=== PATIENT | female | born 1995 | race Caucasian/White ===

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

== ENCOUNTER 2019-03-11 15:16 | Inpatient (IN) ==
[2019-03-11] MEDS ORDERED: ACETAMINOPHEN 1,000 MG/100 ML VIAL IV STA (16:12)
[2019-03-11] MEDS ORDERED: ONDANSETRON INJ 2 MG/ML 2 ML VIAL IV STA (16:12)
[2019-03-11] MEDS ORDERED: KETOROLAC TROMETHAMINE 15 MG/ML VIAL IV STA (16:12)
[2019-03-11] MEDS ORDERED: SODIUM CHLORIDE 0.9% 1000ML 1,000 ML IV ONE (16:12)
[2019-03-11 16:39] LABS: Basophils # (auto) 0.02 K/uL (0-0.2); Basophils % (auto) 0.2 %; Eosinophils # (auto) 0.01 K/uL (0-0.5); Eosinophils % (auto) 0.1 %; Hemoglobin 15.5 g/dL (12.0-16.0); Immature Granulocytes # (auto) 0.02 K/uL (0.00-0.02); Immature Granulocytes % (auto) 0.2 %; Lymphocytes # (auto) 1.83 K/uL (1.2-3.4); Lymphocytes % (auto) 18.9 %; Mean Corpuscular Hemoglobin 30.9 pg (25-34); Mean Corpuscular Volume 85.8 fL (80-100); Mean Platelet Volume 10.1 fL (7.4-10.4); Monocytes # (auto) 0.61 K/uL (0.11-0.59); Monocytes % (auto) 6.3 %; Neutrophils # (auto) 7.21 K/uL (1.4-6.5); Neutrophils % (auto) 74.3 %; Platelet Count 319 K/uL (130-400); RDW Coefficient of Variation 12.6 % (11.5-14.5); RDW Standard Deviation 39.6 fL (36.4-46.3); Red Blood Count 5.01 M/uL (4.2-5.4)
[2019-03-11 16:56] LABS: BUN Creatinine Ratio 9.2 (10-20); Calcium 9.5 mg/dl (8.5-10.1); Creatinine Clr Calc Pharmacy 116.2 ml/min; Est GFR (African American) 108.9; Est GFR (Non-African American) 93.9; Potassium 3.7 mmol/L (3.5-5.1)
[2019-03-11 16:59] LABS: Albumin Globulin Ratio 0.8 (0.9-2); Bilirubin,Total 0.4 mg/dl (0.2-1); Globulin 5.1 gm/dl (2.5-4.0); Total Protein 9.1 gm/dl (6.4-8.2)
--- NOTE | 2019-03-11 18:07 | Ultrasound Report ---
US gallbladder HISTORY: Pain. Nausea. ruq pain COMPARISON: None. FINDINGS: Thickened gallbladder wall at 3 mm. No shadowing gallstones. Common bile duct 4 mm. 3 cm hemangioma left hepatic lobe. Right kidney is negative for hydronephrosis . IMPRESSION: 1. Mild prominence of the gallbladder wall in terms thickness. 2. No shadowing gallstones. 3. Normal caliber bile ducts. The above report was generated using voice recognition software. It may contain grammatical, syntax or spelling errors. Electronically signed by: Luiz Escamilla M.D. 03/11/2019 6:05 PM
[2019-03-11] MEDS ORDERED: AMPICILLIN/SULBACTAM SOD 3,000 MG in 0.9 % SODIUM CHLORIDE 100 ML IV STA (18:30)
--- NOTE | 2019-03-11 18:31 | Emergency Department Note ---
Entered by Mary Meyer acting as a scribe for History of Present Illness General Chief complaint: GI Bleed Stated complaint: GI BLEED Time Seen by Provider: 03/11/19 16:01 Source: patient History of Present Illness Onset (ago): hour(s) (this morning) Location: abdomen Pain Consistency: + intermittent Maximum Pain Intensity: 7 Quality: + other (jose-colored stool with black specs and blood) Associated symptoms: + fever/chills (negative fever, positive chills), + nausea/vomiting and + other (pain in gallbladder) The patient is a 23 year old female who presents to the Emergency Room with comp laints of intermittent jose-colored stool with black specs and blood beginning this morning. The patient states her stools have been becoming softer as the day went on. The patient reports episodes of constant stabbing pain in her gallbladder. She notes the pain is a 9/10. She states the episodes last anywhere from a few minutes to an hour. The patient reports dull achy pain in her gallbladder for the past five weeks. She reports nausea and chills, but denies fever. The patient denies any previous surgeries. Patient was seen in the ER on February 25, 2019 for abdominal pain. She had a normal white blood cell count and a normal gallbladder US. Patient was seen by general surgery on March 08, 2019. Surgery decided to remove her gallbladder, and the patient has surgery scheduled for March [address] Mcgraw. Home Medications Home Medications Medication Instructions Recorded Confirmed Type L norgest/e.estradiol-e.estrad 1 tab PO HS 12/01/18 03/11/19 History [Seasonique] lorazepam 0.5 mg PO DAILY PRN 12/01/18 03/11/19 History venlafaxine [Effexor XR] 75 mg PO HS 12/01/18 03/11/19 History naproxen 500 mg PO BID PRN 02/11/19 03/11/19 History buspirone 20 mg PO HS 02/25/19 03/11/19 History famotidine 20 mg PO BID 02/25/19 03/11/19 History omeprazole 20 mg PO QAM 02/25/19 03/11/19 History tramadol 50 mg PO BID PRN 03/08/19 03/11/19 History dicyclomine 10 mg PO TID PRN 03/11/19 03/11/19 History Allergies Allergy/AdvReac Type Severity Reaction Status Date / Time No Known Drug Allergies AdvReac . Verified 03/11/19 17:45 jalapeno AdvReac Severe nausea,vomi Uncoded 03/11/19 17:45 ting,diarrh ea Past Med/Surg History Medical History Mesenteric adenitis (Acute) hx Chronic cholecystitis Anxiety Depression GERD (gastroesophageal reflux disease) Surgical History H/O wisdom tooth extraction History of esophagogastroduodenoscopy (EGD) Family History Mother Diabetes Hypertension Uncle Diabetes Grandfather FHx: prostate cancer Grandfather (Maternal) FHx: lung cancer Social History Preferred Language: Honduran Communication Ability: Effective Director Of Early Childhood Required: No Beliefs That Will Affect Care: None marital status: Single Current Living Situation: Other Current Living Situation Comment: lives with fiance current occupational status: employed current occupation: Dental Hygienist Other Information That Helps Us Care for You: No Feels Safe at Home: Yes Safety Concerns: Feels Safe At This Time Smoking Status: Never smoker Do You Dip or Chew Tobacco: No ; Second Hand Exp osure: Yes (as a child) ; Hx Alcohol Use: Yes Alcohol type: wine Hx Substance Use: No Review of Systems See HPI for pertinent positives & negatives. and A total of 10 systems reviewed and were otherwise negative Physical Exam Vital Signs Vital Signs - 24 hr 03/11/19 15:32 03/11/19 17:17 Temperature 36.9 C Temperature Source Oral Sepsis Recent Fever Within 48 Hours No Sepsis Action Taken by Nursing No Action Required Pulse Rate 105 H Pulse Rate [Finger] 90 Pulse Rhythm [Finger] Regular Respiratory Rate 18 18 Respiratory Effort / Characteristics Non-Labored Spontaneous Respiratory Depth Normal Blood Pressure 140/74 Blood Pressure [Right Arm] 140/74 Blood Pressure Mean 96 Blood Pressure Mean [Right Arm] 96 Blood Pressure Position Sitting Pulse Oximetry 100 100 Oxygen Delivery Method Room Air GENERAL: Patient is in no acute distress. Patient is anxious. HEENT: No acute trauma, normocephalic atraumatic, mucous membranes moist, no nasal congestion, no scleral icterus. NECK: No stridor, no adenopathy, no meningismus, trachea is midline. LUNGS: Clear to auscultation bilaterally, no wheeze, no rhonchi, breath sounds equal. HEART: Mildly tachycardic with regular rhythm, no murmurs. ABDOMEN: Moderately tender to right upper quadrant an epigastric region. Soft, bowel sounds positive, no hernias, no peritonitis. EXTREMITIES: No cyanosis or edema, full range of motion of all the joints without pain or difficulty, no signs for acute trauma. NEUROLOGIC: Oriented x 3, no acute motor or sensory deficits, no focal weakness. SKIN: No rash, no jaundice, no diaphoresis. RECTAL: No hemorrhoids or source for bleeding. Brown stool, heme-negative. Course 1605: Past medical records reviewed. The patient was evaluated in room A12A. A complete history and physical exam was performed. 1618: I spoke with Dr. Munoz about the patient's condition. However, he will not see the patient without lab work first. 1815: I spoke with Dr. Munoz who said to call medicine for admission. He said to tell medicine to schedule a HIDA scan. 1820: Upon reevaluation, I discussed findings and results with the patient and her family. 1830: Upon reevaluation, I discussed findings and results with the patient and her family. They verbalized agreement of the treatment plan. I spoke with Pedrito Jimenes PA-C who agrees to further evaluation of the patient [facility] The patient will be evaluated for further management and care. Administered Medications Buspirone HCl (Buspar) 20 mg PO HS KIARA Stop: 04/10/19 21:59 Last Admin: 03/11/19 22:08 Dose: 20 mg Documented by: [id number] Sodium Chloride (Nss 1000ml) 1,000 mls @ 80 mls/hr IV .[id number] KIARA Stop: 03/12/19 16:00 Last Admin: 03/11/19 21:29 Dose: 80 mls/hr Documented by: [id number] Lorazepam (Ativan) 0.5 mg PO DAILY PRN PRN Reason: Anxiety Stop: 04/10/19 21:29 Last Admin: 03/11/19 22:07 Dose: 0.5 mg Documented by: [id number] Venlafaxine HCl (Effexor Extended Release) 75 mg PO HS KIARA Stop: 04/10/19 20:59 Last Admin: 03/11/19 21:27 Dose: 75 mg Documented by: [id number] Discontinued Medications Acetaminophen (Ofirmev) 1,000 mg in 100 mls @ 400 mls/hr IV NOW STA Stop: 03/11/19 16:26 Last Infusion: 03/11/19 17:47 Dose: 0 mls/hr Documented by: [id number] Admin: 03/11/19 16:55 Dose: 400 mls/hr Documented by: [id number] Sodium Chloride (Nss 1000ml) 1,000 mls @ 999 mls/hr IV .[id number] ONE Stop: 03/11/19 17:12 Last Infusion: 03/11/19 18:29 Dose: 0 mls/hr Documented by: [id number] Admin: 03/11/19 16:55 Dose: 999 mls/hr Documented by: [id number] Ampicillin Sodium/Sulbactam Sodium 3,000 mg/ Sodium Chloride 108 mls @ 200 mls/hr IV NOW STA; Protocol Stop: 03/11/19 19:02 Last Infusion: 03/11/19 19:58 Dose: 0 mls/hr Documented by: [id number] Admin: 03/11/19 19:15 Dose: 200 mls/hr Documented by: [id number] Ketorolac Tromethamine (Toradol) 15 mg IV NOW STA Stop: 03/11/19 16:13 Last Admin: 03/11/19 16:55 Dose: 15 mg Documented by: [id number] Ondansetron HCl (Zofran) 4 mg IV NOW STA Stop: 03/11/19 16:13 Last Admin: 03/11/19 16:55 Dose: 4 mg Documented by: [id number] Medical Decision Making Differential Diagnosis Differential diagnosis: acute cholecystitis, biliary colic, hemorrhoid, pancreatitis, dehydration, upper or lower GI bleed , gastritis, food borne or viral illness Medical Records Attestation: I reviewed the patient's medical records. Home Medications Current Medication List: was personally reviewed by me Laboratory Data Attestation: I reviewed the patient's lab results. Result diagrams: 03/11/19 16:29 03/11/19 16:29 Lab Results 03/11/19 03/11/19 03/11/19 Range/Units 15:50 16:29 16:29 WBC 9.70 (4.8-10.8) K/uL RBC 5.01 (4.2-5.4) M/uL Hgb 15.5 (12.0-16.0) g/dL Hct 43.0 (37-47) % MCV 85.8 (80-100) fL MCH 30.9 (25-34) pg MCHC 36.0 (32-36) g/dL RDW Std Deviation 39.6 (36.4-46.3) fL RDW Coeff of Mario 12.6 (11.5-14.5) % Plt Count 319 (130-400) K/uL MPV 10.1 (7.4-10.4) fL Immature Gran % (Auto) 0.2 % Neut % (Auto) 74.3 % Lymph % (Auto) 18.9 % Beaver % (Auto) 6.3 % Eos % (Auto) 0.1 % Baso % (Auto) 0.2 % Immature Gran # (Auto) 0.02 (0.00-0.02) K/uL Neut # (Auto) 7.21 H (1.4-6.5) K/uL Lymph # (Auto) 1.83 (1.2-3.4) K/uL Beaver # (Auto) 0.61 H (0.11-0.59) K/uL Eos # (Auto) 0.01 (0-0.5) K/uL Baso # (Auto) 0.02 (0-0.2) K/uL Sodium 135 L (136-145) mmol/L Potassium 3.7 (3.5-5.1) mmol/L Chloride 103 (98-107) mmol/L Carbon Dioxide 23 (21-32) mmol/L Anion Gap 9.0 (3-11) BUN 8 (7-18) mg/dl Creatinine 0.88 (0.6-1.2) mg/dl Est Cr Clr Drug Dosing 116.2 ml/min Est GFR ( Amer) 108.9 Est GFR (Non-Af Amer) 93.9 BUN/Creatinine Ratio 9.2 L (10-20) Glucose 87 (70-99) mg/dl Calcium 9.5 (8.5-10.1) mg/dl Total Bilirubin 0.4 (0.2-1) mg/dl AST 24 (15-37) U/L ALT 42 (12-78) U/L Alkaline Phosphatase 141 H (45-117) U/L Total Protein 9.1 H (6.4-8.2) gm/dl Albumin 4.0 (3.4-5.0) gm/dl Globulin 5.1 H (2.5-4.0) gm/dl Albumin/Globulin Ratio 0.8 L (0.9-2) Lipase 66 L (73-393) U/L Urine Test Negative (Negative) Imaging Data Radiologist's Impression: Radiology results as stated below per my review and the radiologist's interpretation: US gallbladder HISTORY: Pain. Nausea. ruq pain COMPARISON: None. FINDINGS: Thickened gallbladder wall at 3 mm. No shadowing gallstones. Common bile duct 4 mm. 3 cm hemangioma left hepatic lobe. Right kidney is neg ative for hydronephrosis. IMPRESSION: 1. Mild prominence of the gallbladder wall in terms thickness. 2. No shadowing gallstones. 3. Normal caliber bile ducts. The above report was generated using voice recognition software. It may contain grammatical, syntax or spelling errors. Electronically signed by: Luiz Escamilla M.D. 03/11/2019 6:05 PM Blood Pressure Blood Pressure Findings: Elevated blood pressure Blood Pressure Disposition: elevated BP felt to be situational MDM Narrative There is no leukocytosis or concerning anemia. No significant electrolyte abnormality or kidney failure. Alk phos is slightly elevated at 141. No bilirubin elevation. No evidence for pancreatitis by our testing. Gallbladder ultrasound shows some slightly thickened gallbladder wall, no gallstones. On exam, the patient was tender in the right upper quadrant. I did review the patient's old records. She did have a HIDA scan done showing the potential of a chronic cholecystitis. This scan was done just over a week ago. The patient received IV saline, IV Zofran and IV Toradol. She was given IV Tylenol and a dose of IV Unasyn as antibiotic coverage. The patient presents with ongoing right upper quadrant abdominal pain. I discussed her case with general surgery. They recommended a hospitalist admission with potential surgery tomorrow once resuscitation was complete. There is no reason for emergent surgical intervention this evening. The patient is aware of the findings, she is currently resting comfortably. Impression & Plan Right upper quadrant abdominal pain, Nausea, Cholecystitis, chronic Discharge Plan Visit Data *Final* Discharge Date/Time: 03/11/19 19:59 Chief Complaint: GI Bleed Stated Complaint: GI BLEED ED Provider: Pedrito Craig Discharge Problem: Right upper quadrant abdominal pain, Nausea, Cholecystitis, chronic Patient Disposition: Admitted As Inpatient Discharge Instructions Interventions: ED Discharge Assessment Last Done: 03/11/19 19:59 The dinaibe's documentation has been prepared under my direction and personally reviewed by me in its entirety. I confirm that the note above accurately reflects all work, treatment, procedures, and medical decision making performed by me.
[2019-03-11 20:36] LABS: Pregnancy Test, Urine Negative (Negative)
--- NOTE | 2019-03-11 20:56 | History & Physical Report ---
Date of Service March 11, 2019 Assessment & Plan (1) Right upper quadrant abdominal pain: Patient with recent HIDA scan which reflects probable chronic cholecystitis Ultrasound in the ER shows no biliary obstruction and no stones in the gallbladder but there is 3 mm thickening of the gallbladder wall Surgery was consulted and will see the patient in the morning Repeat labs in the morning IV fluids overnight N.p.o. after midnight Defer further evaluation treatment to Dr. Munoz (2) Hematochezia: Patient reports one episode of diarrhea this morning with blood in it No other bright red blood per rectum Will guaiac all stools We will also send stool for culture No intervention at this time Continue famotidine and PPI as well as Bentyl No indication for gastroenterology consult at this time We will follow throughout the course of this hospital stay (3) Anxiety and depression: Continue home medication including buspirone, lorazepam, and Effexor XR (4) GERD (gastroesophageal reflux disease): Follows with [facility] gastroenterology Continue Bentyl, famotidine, pantoprazole for now No gastroenterology consult at this point We will follow for hematochezia as listed above (5) DVT prophylaxis: No chemical prophylaxis secondary to possible surgery ROYAL royal SCDs Ambulate in hallways every shift Out of bed to chair Please refer to Dr. Mariee's addendum for further recommendations History of Present Illness Attending: Dr. Mariee There is a 23-year-old female with a history of anxiety, depression, dysmenorrhea, hematochezia, chronic cholecystitis. The patient has been evaluated by outpatient surgery as well as GI for ongoing abdominal pain for the last several weeks. She was most recently seen by Dr. Mcgraw who scheduled her for a HIDA scan which showed chronic cholecystitis. The patient was scheduled for an elective cholecystectomy 03/16/2019. The patient has had persistent nausea and abdominal pain and this morning reports having some diarrhea with some blood in it. Patient denies any dark blood but states that it was bright red. The patient has no prior history of GI bleed. As an outpatient she is on Bentyl, famotidine, and omeprazole. She denies any rectal pain with bowel movement. She denies any bright red blood per rectum or melena. She further denies any hematemesis. Labs reveal slightly elevated alkaline phosphatase at 141 and total protein 9.1. Otherwise LFTs are within normal limits. Patient has no leukocytosis and is afebrile She has no significant abdominal pain on exam and has no rebound tenderness or guarding. Aside from abdominal pain and some intermittent nausea the patient has no other acute complaints. Primary Care Provider: Ananth Peralta MD Allergies Allergy/AdvReac Type Severity Reaction Status Date / Time No Known Drug Allergies AdvReac . Verified 03/11/19 17:45 jalapeno AdvReac Severe nausea,vomi Uncoded 03/11/19 17:45 ting,diarrh ea Home Medications Home Medications Medication Instructions Recorded Confirmed Type L norgest/e.estradiol-e.estrad 1 tab PO HS 12/01/18 03/11/19 History [Seasonique] lorazepam 0.5 mg PO DAILY PRN 12/01/18 03/11/19 History venlafaxine [Effexor XR] 75 mg PO HS 12/01/18 03/11/19 History naproxen 500 mg PO BID PRN 02/11/19 03/11/19 History buspirone 20 mg PO HS 02/25/19 03/11/19 History famotidine 20 mg PO BID 02/25/19 03/11/19 History omeprazole 20 mg PO QAM 02/25/19 03/11/19 History tramadol 50 mg PO BID PRN 03/08/19 03/11/19 History dicyclomine 10 mg PO TID PRN 03/11/19 03/11/19 History Past Med/Surg History Medical History Mesenteric adenitis (Acute) hx Chronic cholecystitis Anxiety Depression GERD (gastroesophageal reflux disease) Surgical History H/O wisdom tooth extraction History of esophagogastroduodenoscopy (EGD) Family History Mother Diabetes Hypertension Uncle Diabetes Grandfather FHx: prostate cancer Grandfather (Maternal) FHx: lung cancer Social History Preferred Language: Faroese Communication Ability: Effective Engineering Aide Required: No Beliefs That Will Affect Care: None marital status: Single Current Living Situation: Other Current Living Situation Comment: lives with fiance current occupational status: employed current occupation: Dental Hygienist Other Information That Helps Us Care for You: No Feels Safe at Home: Yes Safety Concerns: Feels Safe At This Time Smoking Status: Never smoker Do You Dip or Chew Tobacco: No ; Second Hand Exposure: Yes (as a child) ; Hx Alcohol Use: Yes Alcohol type: wine Hx Substance Use: No Review of Systems Review of Systems: All systems reviewed & are unremarkable except as noted in HPI & below Physical Exam Physical Exam: GENERAL : No acute distress EYES: No icterus, gaze conjugate NOSE: No evidence of epistaxis MOUTH: No lesions or candidiasis NECK: Supple LUNGS: CTA B/L, no wheezes, rales or rhonchi HEART: Regular, rate controlled ABDOMEN: Minimal tenderness to exam in right upper quadrant with deep palpation. Soft, ND, BS Present in all 4 quadrants. No guarding or rebound tenderness on exam EXTREMITIES: No LE edema, pedal pulses intact and equal bilaterally. No asymmetrical edema. No Homans sign. NEURO: A&OX3. No appreciation of any focal deficits. Results & Data Vital Signs (Past 12 Hours) Vital Signs Temp Pulse Pulse Resp BP BP Pulse Ox 03/11/19 19:42 99 H 16 111/74 97 03/11/19 17:17 90 18 140/74 100 03/11/19 15:32 36.9 C 105 H 18 140/74 100 Laboratory Results 03/11/19 16:29 03/11/19 16:29 Alkaline phosphatase 141 Total protein 9.1 Total bilirubin 0.4 Lipase 66 Diagnostic Findings US gallbladder HISTORY: Pain. Nausea. ruq pain COMPARISON: None. FINDINGS: Thickened gallbladder wall at 3 mm. No shadowing gallstones. Common bile duct 4 mm. 3 cm hemangioma left hepatic lobe. Right kidney is negative for hydronephrosis. IMPRESSION: 1. Mild prominence of the gallbladder wall in terms thickness. 2. No shadowing gallstones. 3. Normal caliber bile ducts. Electronically signed by: Luiz Escamilla M.D. 03/11/2019 6:05 PM HIDA Scan 03/02/2019 Impression: #1 delayed gallbladder filling (90 minutes), and raises suspicion for chronic cholecystitis #2 no evidence for common bile duct obstruction Code Status & VTE Plan Code Status Full resuscitation VTE Prophylaxis Plan VTE Prophylaxis will be ordered: Yes Reason for no VTE drug order: Contraindicated (Possible surgery in the morning) Supervising Physician Co-Signing Physician Notes HISTORY: Record reviewed. Patient interviewed and examined. Care coordinated with Pedrito Mohamud PA-C. Please refer to his documentation for detailed history. Briefly, 23 YO female with history of cholecystitis, scheduled for elective cholecystectomy next week. Presented to ED with worsening postprandial right upper quadrant pain after eating fatty food. Also experiencing some loose stools with a small amount of blood. No fever. EXAM: General- no distress Eyes- anicteric Lungs- clear to auscultation; no respiratory distress Cardiovascular- RRR; no murmur; no gallop; no JVD; no pretibial edema Abdomen- + bowel sounds, soft, mild RUQ tenderness Extremities- no cyanosis; no calf tenderness Neuro- alert, oriented Skin- warm & dry DATA: Hemoglobin 15.5, white count 9700, platelet count 319,000. Electrolytes essentially normal, BUN 8, creatinine 0.88, glucose 87. Total bilirubin 0.4, AST 24, ALT 42, alkaline phosphatase 141. Lipase 66. Other lab studies as noted. Gallbladder ultrasound demonstrated mild thickness of gallbladder wall, no cholelithiasis appreciated. ASSESSMENT AND PLAN: RUQ abdominal pain. Recent HIDA scan suggesting cholecystitis. Diarrhea with hematochezia. Afebrile. Consult General Surgery re: RUQ pain. Check stool for C diff and routine enteric pathogens. Please refer to ROSHNI Mohamud's documentation for discussion of other issues.
[2019-03-11] MEDS: VENLAFAXINE HCL XR 75 MG CAPXR PO SCH (21:27)
[2019-03-11] MEDS: SODIUM CHLORIDE 0.9% 1000ML 1,000 ML IV SCH (21:29)
[2019-03-11] MEDS ORDERED: LORazepam 0.5 MG TAB PO PRN (21:30)
[2019-03-12] MEDS ORDERED: MoRPHine SULFATE 2 MG/ML CARP IV PRN (01:59)
[2019-03-12] MEDS: ONDANSETRON INJ 2 MG/ML 2 ML VIAL IV PRN ×3 (01:59→18:14)
[2019-03-12 05:45] LABS: Basophils # (auto) 0.01 K/uL (0-0.2); Basophils % (auto) 0.2 %; Eosinophils # (auto) 0.08 K/uL (0-0.5); Eosinophils % (auto) 1.3 %; Hematocrit (blood only) 38.1 % (37-47); Hemoglobin 12.9 g/dL (12.0-16.0); Immature Granulocytes # (auto) 0.01 K/uL (0.00-0.02); Immature Granulocytes % (auto) 0.2 %; Lymphocytes # (auto) 2.04 K/uL (1.2-3.4); Lymphocytes % (auto) 32.6 %; Mean Corpuscular Hgb Conc 33.9 g/dL (32-36); Mean Corpuscular Volume 88.6 fL (80-100); Mean Platelet Volume 10.8 fL (7.4-10.4); Monocytes # (auto) 0.75 K/uL (0.11-0.59); Neutrophils # (auto) 3.36 K/uL (1.4-6.5); Neutrophils % (auto) 53.7 %; Platelet Count 264 K/uL (130-400); RDW Coefficient of Variation 12.8 % (11.5-14.5); White Blood Count 6.25 K/uL (4.8-10.8)
[2019-03-12 06:08] LABS: BUN Creatinine Ratio 8.3 (10-20); Calcium 8.3 mg/dl (8.5-10.1); Creatinine Clr Calc Pharmacy 132.9 ml/min; Est GFR (African American) 127.9; Est GFR (Non-African American) 110.4; Potassium 3.5 mmol/L (3.5-5.1)
[2019-03-12] MEDS ORDERED: LORazepam 0.25 MG/0.5 ML VIAL IV PRN (06:42)
[2019-03-12] MEDS: PANTOprazole 40 MG TAB PO SCH (07:28)
[2019-03-12] MEDS ORDERED: INFLUENZA ADMINISTRATION CHARGE ONE (07:45)
[2019-03-12] MEDS ORDERED: INFLUENZA VIRUS QUAD VACCINE 0.5 ML SYR IM ONE (07:45)
--- NOTE | 2019-03-12 08:00 | XRay Report ---
XR chest 1V portable HISTORY: Pre-op COMPARISON: None. FINDINGS: The lungs are clear. Cardiac silhouette is normal in size. No pleural effusions. No pneumot horax. IMPRESSION: No acute process. Electronically signed by: Romero Hebert M.D. 03/12/2019 7:59 AM
[2019-03-12] MEDS ORDERED: MIDAZOLAM HCL 1 MG/ML 2ML VIAL ONE (08:32)
[2019-03-12] MEDS ORDERED: fentaNYL citrate 100 MCG/2 ML VIAL ONE ×2 (08:32→10:11)
--- NOTE | 2019-03-12 08:34 | Surgery Consultation ---
Date of Consultation March 12, 2019 Assessment & Plan (1) Abdominal pain: pt is a 23 year-old female who was admitted hospital for 5 weeks history RUQ pain with nausea and vomiting, IMP: chronic cholecystitis Plan, I recommend to do laparoscopic cholecystectomy, possible open or cholang iogram, D/W benefits, risks and alternatives of the surgery, the risks - infection, bleeding, injury CBD, pt understood, she agrees with the surgery, I answered all questions, (2) Chronic cholecystitis: History of Present Illness Attending Physician: Amelia Bryant MD CC: abdominal pain There is a 23-year-old female with a history of anxiety, depression, dysmenorrhea, hematochezia, chronic cholecystitis. The patient has been evaluated by outpatient surgery as well as GI for ongoing abdominal pain for the last several weeks. She was most recently seen by Dr. Mcgraw who scheduled her for a HIDA scan which showed chronic cholecystitis. The patient was scheduled for an elective cholecystectomy 03/16/2019. The patient has had persistent nausea and abdominal pain and this morning reports having some diarrhea with some blood in it. Patient denies any dark blood but states that it was bright red. The patient has no prior history of GI bleed. As an outpatient she is on Bentyl, famotidine, and omeprazole. She denies any rectal pain with bowel movement. She denies any bright red blood per rectum or melena. She further denies any hematemesis. Labs reveal slightly elevated alkaline phosphatase at 141 and total protein 9.1. Otherwise LFTs are within normal limits. Patient has no leukocytosis and is afebrile She has no significant abdominal pain on exam and has no rebound tenderness or guarding. Aside from abdominal pain and some intermittent nausea the patient has no other acute complaints. I ( Kerline Munoz MD) reviewed pt's H/P, laps, U/S Study with pt, pt is still have RUQ pain, with nausea, pt wants to do cholecystectomy. Allergies Allergy/AdvReac Type Severity Reaction Status Date / Time No Known Drug Allergies AdvReac . Verified 03/11/19 17:45 jalapeno AdvReac Severe nausea,vomi Uncoded 03/11/19 17:45 ting,diarrh ea Home Medications Home Medications Medication Instructions Recorded Confirmed Type L norgest/e.estradiol-e.estrad 1 tab PO HS 12/01/18 03/11/19 History [Seasonique] lorazepam 0.5 mg PO DAILY PRN 12/01/18 03/11/19 History venlafaxine [Effexor XR] 75 mg PO HS 12/01/18 03/11/19 History naproxen 500 mg PO BID PRN 02/11/19 03/11/19 History buspirone 20 mg PO HS 02/25/19 03/11/19 History famotidine 20 mg PO BID 02/25/19 03/11/19 History omeprazole 20 mg PO QAM 02/25/19 03/11/19 History tramadol 50 mg PO BID PRN 03/08/19 03/11/19 History dicyclomine 10 mg PO TID PRN 03/11/19 03/11/19 History Patient History Medical History Chronic cholecystitis Abdominal pain Mesenteric adenitis (Acute) hx Chronic cholecystitis Anxiety Depression GERD (gastroesophageal reflux disease) Surgical History H/O wisdom tooth extraction History of esophagogastroduodenoscopy (EGD) Family History Mother Diabetes Hypertension Uncle Diabetes Grandfather FHx: prostate cancer Grandfather (Maternal) FHx: lung cancer Social History Preferred Language: Wallisian Communication Ability: Effective Light Fixture Servicer Required: No Beliefs That Will Affect Care: None marital status: Single Current Living Situation: Other Current Living Situation Comment: lives with fiance current occupational status: employed current occupation: Dental Hygienist Other Information That Helps Us Care for You: No Feels Safe at Home: Yes Safety Concerns: Feels Safe At This Time Smoking Status: Never smoker Do You Dip or Chew Tobacco: No ; Second Hand Exposure: Yes (as a child) ; Hx Alcohol Use: Yes Alcohol type: wine Hx Substance Use: No Review of Systems Review of Systems: All systems reviewed & are unremarkable except as noted in HPI & below Physical Exam Constitutional: WD/WN, vitals as above well developed and well nourished ENMT: external ear and nose normal, oropharynx normal Neck: trachea midline, no thyromegaly Respiratory: normal respiratory effort, lungs clear to auscultation normal respiratory effort Cardiovascular: RRR, no murmur, no edema Rate/Rhythm: regular rate and regular rhythm Heart Sounds: normal S1 and normal S2 Gastrointestinal (Abdomen): soft, tenderness at RUQ, no rebound pain, Musculoskeletal: no cyanosis or clubbing, extremities motor strength 5/5 Skin: no rashes, warm and dry Neurologic: patellar DTR's 2+ bilat, sensation intact Psychiatric: Orientation: alert and oriented x 3 Results & Data Vital Signs (Past 12 Hours) Vital Signs Temp Pulse Resp BP BP Pulse Ox 03/12/19 07:22 36.9 C 84 18 106/75 99 03/11/19 23:56 36.7 C 75 16 107/72 98 03/11/19 21:46 36.8 C 84 16 124/84 98 Laboratory Results Abnormal lab results 03/11/19 03/11/19 03/12/19 Range/Units 16:29 16:29 04:44 MPV 10.8 H (7.4-10.4) fL Neut # (Auto) 7.21 H (1.4-6.5) K/uL [place] # (Auto) 0.61 H 0.75 H (0.11-0.59) K/uL Sodium 135 L (136-145) mmol/L Chloride (98-107) mmol/L BUN (7-18) mg/dl BUN/Creatinine Ratio 9.2 L (10-20) Calcium (8.5-10.1) mg/dl Alkaline Phosphatase 141 H (45-117) U/L Total Protein 9.1 H (6.4-8.2) gm/dl Globulin 5.1 H (2.5-4.0) gm/dl Albumin/Globulin Ratio 0.8 L (0.9-2) Lipase 66 L (73-393) U/L 03/12/19 Range/Units 04:44 MPV (7.4-10.4) fL Neut # (Auto) (1.4-6.5) K/uL [place] # (Auto) (0.11-0.59) K/uL Sodium (136-145) mmol/L Chloride 110 H (98-107) mmol/L BUN 6 L (7-18) mg/dl BUN/Creatinine Ratio 8.3 L (10-20) Calcium 8.3 L (8.5-10.1) mg/dl Alkaline Phosphatase (45-117) U/L Total Protein (6.4-8.2) gm/dl Globulin (2.5-4.0) gm/dl Albumin/Globulin Ratio (0.9-2) Lipase (73-393) U/L Diagnostic Findings US gallbladder HISTORY: Pain. Nausea. ruq pain COMPARISON: None. FINDINGS: Thickened gallbladder wall at 3 mm. No shadowing gallstones. Common bile duct 4 mm. 3 cm hemangioma left hepatic lobe. Right kidney is nega tive for hydronephrosis. IMPRESSION: 1. Mild prominence of the gallbladder wall in terms thickness. 2. No shadowing gallstones. 3. Normal caliber bile ducts.
[2019-03-12] MEDS ORDERED: CEFAZOLIN 2000MG 2,000 MG/15 ML SYR IV ONE (08:39)
[2019-03-12] MEDS ORDERED: BUPIVACAINE 0.5 % 5 MG/1 ML MPF 30ML VIAL ONE (09:22)
[2019-03-12] MEDS ORDERED: BACITRACIN OINT 15 GM TUBE ONE (09:22)
[2019-03-12] MEDS ORDERED: LIDOCAINE HCL 1% 20 ML VIAL ONE (09:22)
--- NOTE | 2019-03-12 09:27 | Anesthesiology Consultation ---
Date of Service March 12, 2019 Assessment & Plan ASA ASA2E Proposed Anesthesia Anesthesia Type: General Risk / Benefits Reviewed With: PT / POA / Parent / Guardian, Accepts Plan and Informed Consent Obtained History Surgery Operation Date: 03/12/19 09:00 Proposed Procedures p Laparoscopic Cholecystectomy - Kerline Munoz MD Height/Weight Height: 5 ft 5 in Weight: 96.615 kg Allergies Allergy/AdvReac Type Severity Reaction Status Date / Time No Known Drug Allergies AdvReac . Verified 03/11/19 17:45 jalapeno AdvReac Severe nausea,vomi Uncoded 03/11/19 17:45 ting,diarrh ea Medications Home Medications Medication Instructions Recorded Confirmed Last Taken L norgest/e.estradiol-e.estrad 1 tab PO HS 12/01/18 03/11/19 02/10/19 [Seasonique] lorazepam 0.5 mg PO DAILY PRN 12/01/18 03/11/19 Unknown venlafaxine [Effexor XR] 75 mg PO HS 12/01/18 03/11/19 02/10/19 naproxen 500 mg PO BID PRN 02/11/19 03/11/19 Unknown buspirone 20 mg PO HS 02/25/19 03/11/19 Unknown famotidine 20 mg PO BID 02/25/19 03/11/19 Unknown omeprazole 20 mg PO QAM 02/25/19 03/11/19 Unknown tramadol 50 mg PO BID PRN 03/08/19 03/11/19 Unknown dicyclomine 10 mg PO TID PRN 03/11/19 03/11/19 Unknown Active Medications Generic Name Dose Route Start Last Admin Trade Name Freq PRN Reason Stop Dose Admin Buspirone HCl 20 mg 03/11/19 22:00 03/11/19 22:08 Buspar PO 04/10/19 21:59 20 mg HS KIARA Administration Sodium Chloride 1,000 mls @ 80 mls/hr 03/11/19 21:30 03/11/19 21:29 Nss 1000ml IV 03/12/19 16:00 80 mls/hr .[id number] KIARA Administration Lorazepam 0.25 mg in 0.5 mls @ 0.5 mls/min 03/12/19 06:42 03/12/19 07:00 Ativan IV 04/11/19 06:41 0.5 mls/min Q4H PRN Administration Anxiety Lorazepam 0.5 mg 03/11/19 21:30 03/11/19 22:07 Ativan PO 04/10/19 21:29 0.5 mg DAILY PRN Administration Anxiety Morphine Sulfate 2 mg 03/12/19 01:59 03/12/19 02:08 Morphine Sulfate IV 03/26/19 01:58 EST 2 mg Q4H PRN Administration Pain Ondansetron HCl 4 mg 03/11/19 20:14 03/12/19 08:19 Zofran IV 04/10/19 20:13 4 mg Q6H PRN Administration Nausea Pantoprazole Sodium 40 mg 03/12/19 09:00 03/12/19 07:28 Protonix PO 04/11/19 08:59 Not Given QAM KIARA Venlafaxine HCl 75 mg 03/11/19 21:00 03/11/19 21:27 Effexor Extended Release PO 04/10/19 20:59 75 mg HS KIARA Administration NPO Date Last Intake of Fluids: 03/12/19 Time Last Intake of Fluids: 00:00 Date Last Intake of Solids: 03/11/19 Time Last Intake of Solids: 21:00 Past Medical History Medical History Chronic cholecystitis Abdominal pain Mesenteric adenitis (Acute) hx Chronic cholecystitis Anxiety Depression GERD (gastroesophageal reflux disease) Exercise / Class Metabolic Activity II 4-5 Yardwork/Stairs/Walk up hill Past Family History Family History Mother Diabetes Hypertension Uncle Diabetes Grandfather FHx: prostate cancer Grandfather (Maternal) FHx: lung cancer Past Surgical History Surgical History H/O wisdom tooth extraction History of esophagogastroduodenoscopy (EGD) Past Anesthesia History No Hx of Anesthesia Complications and No Family Hx of Anesthesia Complications History of PONV No Hx of PONV and No Hx of Motion Sickness Social History Smoking Status: Never smoker Do You Dip or Chew Tobacco: No Hx Alcohol Use: Yes Alcohol type: wine alcohol intake frequency: holidays/special occasions only Hx Substance Use: No substance use type: does not use Physical Exam Vital Signs Last Vital Signs Temp 36.9 C 03/12/19 07:22 Pulse 84 03/12/19 07:22 Resp 18 03/12/19 07:22 BP 106/75 03/12/19 07:22 Pulse Ox 99 03/12/19 07:22 Testing Laboratory Results 03/12/19 04:44 03/12/19 04:44 Urine Test Negative (Negative) 03/11/19 15:50 03/11/19 15:50 Urine Test Negative
[2019-03-12] MEDS ORDERED: PROMETHAZINE HCL 6.25 MG in SODIUM CHLORIDE 0.9% 50 ML IV PRN (09:28)
[2019-03-12] MEDS ORDERED: HYDROmorphone INJ 1 MG/ML SYRINGE IV PRN (09:28)
[2019-03-12] MEDS ORDERED: ATROPINE SULFATE 0.1 MG/ML 10ML SYR IV PRN (09:28)
[2019-03-12] MEDS ORDERED: ePHEDrine sulfate 50 MG/ML AMP IV PRN (09:28)
[2019-03-12] MEDS ORDERED: ONDANSETRON INJ 2 MG/ML 2 ML VIAL IV PRN (09:28)
[2019-03-12] MEDS ORDERED: fentaNYL citrate 100 MCG/2 ML VIAL IV PRN (09:28)
[2019-03-12] MEDS ORDERED: SCOPOLAMINE 1.5 MG TDSY ONE (09:38)
[2019-03-12] MEDS ORDERED: LIDOCAINE HCL 2% 2 ML VIAL/AMP(20MG/ML) INFIL ONE (10:15)
[2019-03-12] MEDS ORDERED: NEOSTIGMINE METHYLSULFATE 5 MG/5 ML SYR ONE (10:15)
[2019-03-12] MEDS ORDERED: ONDANSETRON INJ 2 MG/ML 2 ML VIAL ONE (10:15)
[2019-03-12] MEDS ORDERED: GLYCOPYRROLATE 0.2 MG/ML VIAL ONE (10:15)
[2019-03-12] MEDS ORDERED: DEXAMETHASONE SOD INJ 4 MG/ML VIAL ONE (10:15)
[2019-03-12] MEDS ORDERED: ROCURONIUM BROMIDE 10 MG/ML 5 ML VIAL ONE (10:15)
[2019-03-12] MEDS ORDERED: PROPOFOL IV EMULSION 10 MG/ML 20 ML VIAL IV ONE (10:15)
[2019-03-12] MEDS ORDERED: LARYING-O-JET KIT (LTA) ONE (10:17)
[2019-03-12] MEDS ORDERED: CEFAZOLIN 250 MG/ML 1 GM VIAL ONE (10:26)
[2019-03-12] MEDS ORDERED: KETOROLAC 30 MG/ML VIAL ONE (10:59)
--- NOTE | 2019-03-12 11:07 | Post Operative Brief Note ---
Immediate Post Op Note v1 Date of Surgery March 12, 2019 Pre & Post Diagnosis Operation Date: 03/12/19 09:00 Pre-Op Diagnosis: chronic cholecystitis Post-Op Diagnosis: chronic cholecystitis I identified the patient and participated in the time-out.: Yes Procedure Operation Date: 03/12/19 09:00 Actual Procedures p Laparoscopic Cholecystectomy(Not Applicable) - Kerline Munoz MD Surgeon Kerline Munoz MD Patternmaker Helper library technician Estimated Blood Loss 5 Findings Consistent with Post-Op Diagnosis Fluids 500ml Specimens gallbladder Anesthesia Type General Complications none Disposition Accompanied Patient To Recovery: Yes Disposition: Recovery Room Overlapping Procedure I was immediately available: during the entire case.
[2019-03-12] MEDS ORDERED: ESMOLOL HCL INJ 10 MG/ML 10ML VIAL IV ONE (11:25)
[2019-03-12] MEDS ORDERED: LORazepam 0.5 MG TAB PO PRN (12:13)
[2019-03-12] MEDS ORDERED: TRAMADOL HCL 50 MG TABLET PO PRN (12:13)
[2019-03-12] MEDS ORDERED: NAPROXEN 250 MG TAB PO PRN (12:13)
[2019-03-12] MEDS ORDERED: DICYCLOMINE HCL 10 MG CAP PO PRN (12:13)
[2019-03-12] MEDS: HYDROmorphone INJ 0.5 MG/0.5 ML SYR IV PRN ×3 (12:29→18:39)
[2019-03-12] MEDS: LACTATED RINGER'S 1,000 ML IV SCH (12:30)
[2019-03-12] MEDS: FAMOTIDINE 20 MG TAB PO SCH ×2 (13:06→20:17)
--- NOTE | 2019-03-12 13:48 | Anesthesiology Progress Note ---
Date of Service March 12, 2019 Anesthesia Post Procedure Vital Signs Vital Signs: Temp Pulse Pulse Pulse Pulse Resp BP 03/12/19 13:11 68 18 03/12/19 12:50 36.8 C 72 16 03/12/19 12:14 36.8 C 91 H 16 03/12/19 12:00 72 16 03/12/19 11:50 36.6 C 86 16 03/12/19 11:40 100 H 16 03/12/19 11:30 90 16 03/12/19 11:21 36.5 C 103 H 16 03/12/19 07:22 36.9 C 84 18 03/11/19 23:56 36.7 C 75 16 03/11/19 21:46 36.8 C 84 16 03/11/19 19:42 99 H 16 03/11/19 17:17 90 18 03/11/19 15:32 36.9 C 105 H 18 140/74 BP BP Pulse Ox 03/12/19 13:11 132/89 97 03/12/19 12:50 136/89 97 03/12/19 12:14 135/89 99 03/12/19 12:00 139/94 96 03/12/19 11:50 128/85 98 03/12/19 11:40 116/90 99 03/12/19 11:30 134/88 100 03/12/19 11:21 130/81 100 03/12/19 07:22 106/75 99 03/11/19 23:56 107/72 98 03/11/19 21:46 124/84 98 03/11/19 19:42 111/74 97 03/11/19 17:17 140/74 100 03/11/19 15:32 100 Pain Intensity Abdomen: Pain Intensity: 6 Transfer of Care Handoff Completed per policy Notes Mental Status: alert / awake / arousable and participated in evaluation Patient Amnestic to Procedure: Yes Nausea / Vomiting: adequately controlled Pain: adequately controlled Airway Patency, RR, SpO2: stable & adequate BP & HR: stable & adequate Hydration State: stable & adequate Anesthetic Complications: no major complications apparent and Pt Satisfied with anesthetic care
--- NOTE | 2019-03-12 13:51 | Hospitalist Progress Note ---
Date of Service March 12, 2019 Assessment & Plan (1) Right upper quadrant abdominal pain: Outpatient HIDA scan did show chronic cholecystitis Inpatient ultrasound did show thickening of the gallbladder wall Symptoms suggestive of gallbladder disease Status post laparoscopic cholecystectomy on 03/16 Appreciate surgery input and recommendation Remains reasonably stable following surgery We will continue current medications (2) Hematochezia: Denies any more hematochezia Will monitor H&H in the hospital (3) Anxiety and depression: Has been on multiple and OT psychotic medications We will continue dose while in the hospital (4) GERD (gastroesophageal reflux disease): Continue current medications (5) DVT prophylaxis: SCDs for now Subjective 03/12 The patient was seen and examined in presence of the parents She is 23-year-old female with significant past medical history as mentioned in the H&P including anxiety, depression, dysmenorrhea, hematochezia, chronic cholecystitis. She was admitted with acute on chronic cholecystitis and is status post laparoscopic cholecystectomy on 03/12 Remains under the influence of medications following surgery but denies any significant symptoms Review of Systems Review of Systems: All systems reviewed and are unremarkable except as noted below Gastrointestinal: + abdominal pain and + bloating; no nausea and no vomiting Neurologic: + confusion (Minimally confused secondary to drowsiness from medications) Physical Exam Physical Exam: No apparent distress at rest Constitutional: well developed, well nourished, + ill appearing and + obese; no acute distress Eyes: PERRL, conjunctivae normal, anicteric sclerae ENMT: external ear and nose normal, oropharynx normal Neck: trachea midline, no thyromegaly Respiratory: normal respiratory effort Auscultation: lungs clear to auscultation bilaterally and + diminished lung sounds Gastrointestinal (Abdomen): Inspection/Auscultation: + abdomen distended Percussion/Palpation: + abdomen tender and abdomen soft Bowel sounds sluggish Neurologic: moves all extremities; no focal motor deficits Alert and awake. Generally weak and drowsy status post surgery Results & Data Vital Signs (Past 12 Hours) Vital Signs Temp Pulse Pulse Pulse Resp BP BP 03/12/19 13:11 68 18 132/89 03/12/19 12:50 36.8 C 72 16 136/89 03/12/19 12:14 36.8 C 91 H 16 135/89 03/12/19 12:00 72 16 139/94 03/12/19 11:50 36.6 C 86 16 128/85 03/12/19 11:40 100 H 16 116/90 03/12/19 11:30 90 16 134/88 03/12/19 11:21 36.5 C 103 H 16 130/81 03/12/19 07:22 36.9 C 84 18 106/75 Pulse Ox 03/12/19 13:11 97 03/12/19 12:50 97 03/12/19 12:14 99 03/12/19 12:00 96 03/12/19 11:50 98 03/12/19 11:40 99 03/12/19 11:30 100 03/12/19 11:21 100 03/12/19 07:22 99 Laboratory Results Short CBC 03/11/19 03/12/19 Range/Units 16:29 04:44 WBC 9.70 6.25 (4.8-10.8) K/uL Hgb 15.5 12.9 (12.0-16.0) g/dL Hct 43.0 38.1 (37-47) % Plt Count 319 264 (130-400) K/uL [facility] 03/11/19 03/12/19 16:29 04:44 Sodium 135 L 140 Potassium 3.7 3.5 Chloride 103 110 H Carbon Dioxide 23 22 BUN 8 6 L Creatinine 0.88 0.77 Glucose 87 85 Calcium 9.5 8.3 L Liver Function 03/11/19 Range/Units 16:29 Total Bilirubin 0.4 (0.2-1) mg/dl AST 24 (15-37) U/L ALT 42 (12-78) U/L Alkaline Phosphatase 141 H (45-117) U/L Albumin 4.0 (3.4-5.0) gm/dl Medications Administered Current Inpatient Medications Buspirone HCl (Buspar) 20 mg PO HS KIARA Stop: 04/10/19 21:59 Last Admin: 03/11/19 22:08 Dose: 20 mg Documented by: Dicyclomine HCl (Bentyl) 10 mg PO TID PRN PRN Reason: Abdominal Pain Stop: 04/11/19 12:12 Famotidine (Pepcid) 20 mg PO BID KIARA Stop: 04/11/19 12:12 Last Admin: 03/12/19 13:06 Dose: 20 mg Documented by: Hydromorphone HCl (Dilaudid) 0.5 mg IV Q3H PRN PRN Reason: Pain Stop: 03/26/19 12:12 Last Admin: 03/12/19 12:29 Dose: 0.5 mg Documented by: Lorazepam (Ativan) 0.25 mg in 0.5 mls @ 0.5 mls/min IV Q4H PRN PRN Reason: Anxiety Stop: 04/11/19 06:41 Last Admin: 03/12/19 07:00 Dose: 0.5 mls/min Documented by: Lactated Ringer's (Lr) 1,000 mls @ 80 mls/hr IV .[id number] KIARA Stop: 04/11/19 12:12 Last Admin: 03/12/19 12:30 Dose: 80 mls/hr Documented by: Lorazepam (Ativan) 0.5 mg PO DAILY PRN PRN Reason: Anxiety Stop: 04/11/19 12:12 Miscellaneous (Order Awaiting Action) 1 ea N/A QS [facility] Stop: 04/11/19 15:59 Naproxen (Naprosyn) 500 mg PO BID PRN PRN Reason: Pain Stop: 04/11/19 12:12 Ondansetron HCl (Zofran) 4 mg IV Q6H PRN PRN Reason: Nausea Stop: 04/10/19 20:13 Last Admin: 03/12/19 08:19 Dose: 4 mg Documented by: Oxycodone/Acetaminophen (Percocet 5mg/325mg) 1 tab PO Q4H PRN PRN Reason: Pain Stop: 03/26/19 12:12 Pantoprazole Sodium (Protonix) 40 mg PO QAM KIARA Stop: 04/11/19 08:59 Last Admin: 03/12/19 07:28 Dose: Not Given Documented by: Tramadol HCl (Ultram) 50 mg PO BID PRN PRN Reason: Pain Stop: 04/11/19 12:12 Venlafaxine HCl (Effexor Extended Release) 75 mg PO HS [facility] Stop: 04/10/19 20:59 Last Admin: 03/11/19 21:27 Dose: 75 mg Documented by:
[2019-03-12] MEDS: SODIUM CHLORIDE 0.9% 1000ML 1,000 ML IV SCH (14:14)
[2019-03-12] MEDS: OXYCODONE/ACETAMINOPHEN 5mg/325mg TAB PO PRN ×2 (14:44→20:15)
[2019-03-12] MEDS: VENLAFAXINE HCL XR 75 MG CAPXR PO SCH (20:17)
--- NOTE | 2019-03-12 20:23 | Operative Report ---
DATE OF OPERATION: 03/12/2019 PREOPERATIVE DIAGNOSIS: Symptomatic chronic cholecystitis. POSTOPERATIVE DIAGNOSIS: Symptomatic chronic cholecystitis. PROCEDURE: Laparoscopic cholecystectomy. SURGEON: Kerline Munoz MD ANESTHESIA: General. ESTIMATED BLOOD LOSS: About 5 mL. FINDINGS: Chronic cholecystitis. COMPLICATIONS: None. INDICATIONS FOR THE PROCEDURE: This is 23-year-old female who presented with abdominal pain and chronic cholecystitis confirmed by the ultrasound and HIDA scan. The patient will be required to do laparoscopic cholecystectomy, possible open, possible cholangiogram. I did talk to the patient about the benefit and risk, alternate procedure. I indicated the risks may include but not limited such as bleeding, infection, injury to common bile duct, the patient understands. She signed informed consent and I answered all questions. DETAILS OF PROCEDURE: We brought the patient to the OR, put the patient in the supine position. The patient received SCD on bilateral legs to prevent DVT. Also, patient received 2 grams Ancef IV for prophylactic antibiotic. The patient received general anesthesia without difficulty. The abdomen was prepped and draped in routine sterile fashion. After time out, then I injected local anesthesia by using 1% lidocaine mixed with 0.5% Marcaine just above umbilicus. Then I made a small incision just above umbilicus, opened fascia and opened peritoneum under direct vision, put a Pee trocar in, connected to CO2 to create pneumoperitoneum. Flow rate is 6 liter per minute. Pressure not more than 14 mmHg. Once we got a nice pneumoperitoneum, we put a camera in, looked around the abdomen, shows normal finding on the liver, small bowel, large bowel; however, the gallbladder shows gallbladder wall thickening, edema confirmed diagnosis of chronic cholecystitis. Then, we put another three 5 mm trocar on the right upper quadrant. Once all trocars in, we used a grasper to hold the base of gallbladder, put a direction to the diaphragm, another grasper to hold the pouch of gallbladder, put the lateral to expose triangle of [place]. The cystic duct was identified and mobilized. I put two 5 mm metal clip on the proximal cystic duct, one on the distal cystic duct. I then used a scissor for transection of cystic duct. I rechecked and no bile leak and the cystic artery was identified and mobilized. I put two 5 mm metal clip on the proximal cystic artery, 1 on the distal cystic duct artery, used a scissor for transection of cystic duct. Rechecked, no active bleeding and then we take down gallbladder from the liver bed. Rechecked, no active bleeding, no bile leak from the liver bed. Then we removed gallbladder through the catch bag, then we reinserted Pee trocar in, connected to CO2 to create pneumoperitoneum, again looked around the abdomen showed no active bleeding, no bile leak from liver bed, then we removed all trocar under direct vision. No active bleeding from the trocar sites. Pneumoperitoneum was released. I closed the umbilical incision, fascial layer by using #1 Vicryl [id number] x2, closed subcutaneous layer by using 2-0 Vicryl interrupted, closed skin by using 4-0 Vicryl continuous running, closed another three 5 mm trocar site skin only by using 4-0 Vicryl. We put the dressing on. The patient tolerated the procedure well. All instrument, needle, sponge count were correct x2 at the end of the case. The patient transferred to recovery room in stable condition. The specimen sent to pathology. After procedure, I did talk to the patient and family member about OR finding and procedure we did, they understand. I answered all questions. I attest to the content of the Intraoperative Record and any orders documented therein. Any exceptions are noted below. SAQIB
[2019-03-12] MEDS: CONTRACEPTIVE PO SCH (21:00)
[2019-03-13] MEDS: OXYCODONE/ACETAMINOPHEN 5mg/325mg TAB PO PRN ×2 (00:29→15:37)
[2019-03-13] MEDS: LACTATED RINGER'S 1,000 ML IV SCH ×2 (00:29→13:06)
[2019-03-13 04:45] LABS: Basophils # (auto) 0.01 K/uL (0-0.2); Basophils % (auto) 0.1 %; Hemoglobin 13.6 g/dL (12.0-16.0); Immature Granulocytes # (auto) 0.02 K/uL (0.00-0.02); Immature Granulocytes % (auto) 0.2 %; Lymphocytes # (auto) 1.54 K/uL (1.2-3.4); Lymphocytes % (auto) 12.6 %; Mean Corpuscular Hemoglobin 29.9 pg (25-34); Mean Corpuscular Hgb Conc 34.9 g/dL (32-36); Mean Corpuscular Volume 85.7 fL (80-100); Mean Platelet Volume 10.1 fL (7.4-10.4); Monocytes # (auto) 1.15 K/uL (0.11-0.59); Monocytes % (auto) 9.4 %; Neutrophils # (auto) 9.54 K/uL (1.4-6.5); Neutrophils % (auto) 77.7 %; Platelet Count 285 K/uL (130-400); RDW Coefficient of Variation 12.8 % (11.5-14.5); RDW Standard Deviation 40.1 fL (36.4-46.3); Red Blood Count 4.55 M/uL (4.2-5.4); White Blood Count 12.26 K/uL (4.8-10.8)
[2019-03-13 05:09] LABS: BUN Creatinine Ratio 4.8 (10-20); Calcium 8.7 mg/dl (8.5-10.1); Creatinine Clr Calc Pharmacy 134.7 ml/min; Est GFR (Non-African American) 112.1; Potassium 3.9 mmol/L (3.5-5.1)
[2019-03-13 05:34] LABS: Albumin Globulin Ratio 0.7 (0.9-2); Bilirubin,Total 0.3 mg/dl (0.2-1); Globulin 4.1 gm/dl (2.5-4.0); Total Protein 7.1 gm/dl (6.4-8.2)
[2019-03-13] MEDS: FAMOTIDINE 20 MG TAB PO SCH ×2 (08:03→20:30)
[2019-03-13] MEDS: PANTOprazole 40 MG TAB PO SCH (08:04)
--- NOTE | 2019-03-13 09:47 | Anesthesiology Progress Note ---
Date of Service March 13, 2019 Anesthesia Post Procedure Vital Signs Vital Signs: Temp Pulse Pulse Pulse Resp BP Pulse Ox 03/13/19 07:31 36.7 C 73 16 110/73 97 03/13/19 07:11 36.7 C 73 16 110/73 97 03/13/19 02:58 36.9 C 76 16 124/88 98 03/12/19 22:59 36.7 C 76 16 118/77 98 03/12/19 20:36 36.4 C L 65 17 130/79 96 03/12/19 15:15 36.6 C 70 15 126/88 96 03/12/19 14:10 82 18 137/92 97 03/12/19 13:11 68 18 132/89 97 03/12/19 12:50 36.8 C 72 16 136/89 97 03/12/19 12:14 36.8 C 91 H 16 135/89 99 03/12/19 12:00 72 16 139/94 96 03/12/19 11:50 36.6 C 86 16 128/85 98 03/12/19 11:40 100 H 16 116/90 99 03/12/19 11:30 90 16 134/88 100 03/12/19 11:21 36.5 C 103 H 16 130/81 100 Notes Mental Status: alert / awake / arousable and participated in evaluation Nausea / Vomiting: adequately controlled Pain: adequately controlled Airway Patency, RR, SpO2: stable & adequate BP & HR: stable & adequate Hydration State: stable & adequate
[2019-03-13] MEDS ORDERED: PROMETHAZINE HCL 12.5 MG in SODIUM CHLORIDE 0.9% 50 ML IV PRN (12:23)
--- NOTE | 2019-03-13 12:37 | Surgery Progress Note ---
Date of Service F/U S/P laparoscopic cholecystectomy, POD 1, doing fine, good control incision pain, no nausea, no vomiting, no fever. March 13, 2019 Assessment & Plan (1) Abdominal pain: pt is a 23 year-old female who was admitted hospital for 5 weeks history RUQ pain with nausea and vomiting, IMP: chronic cholecystitis Plan, I recommend to do laparoscopic cholecystectomy, possible open or cholangiogram, D/W benefits, risks and alternatives of the surgery, the risks - infection, bleeding, injury CBD, pt understood, she agrees with the surgery, I answered all questions, 03/13/2019 12:35pm, doing fine, pt can be discharged home today, or tomorrow, keep the dressing on for 4 days, she can take a shower on 03/17/2019, no heavy lifting > 20 LBS for 4 weeks, F/U me in 1 week, (2) Chronic cholecystitis: Physical Exam Constitutional: WD/WN, vitals as above well developed and well nourished ENMT: external ear and nose normal, oropharynx normal Neck: trachea midline, no thyromegaly Respiratory: normal respiratory effort, lungs clear to auscultation normal respiratory effort Cardiovascular: RRR, no murmur, no edema Rate/Rhythm: regular rate and regular rhythm Heart Sounds: normal S1 and normal S2 Gastrointestinal (Abdomen): Percussion/Palpation: abdomen soft no distend, all incisions intact, no redness, no tenderness, Musculoskeletal: no cyanosis or clubbing, extremities motor strength 5/5 Skin: no rashes, warm and dry Neurologic: patellar DTR's 2+ bilat, sensation intact Psychiatric: Orientation: alert and oriented x 3 Results & Data Vital Signs (Past 12 Hours) Vital Signs Temp Pulse Resp BP Pulse Ox 03/13/19 09:51 83 111/77 03/13/19 08:45 91 H 126/87 03/13/19 07:31 36.7 C 73 16 110/73 97 03/13/19 07:11 36.7 C 73 16 110/73 97 03/13/19 02:58 36.9 C 76 16 124/88 98 Laboratory Results Abnormal lab results 03/13/19 03/13/19 Range/Units 04:32 04:32 WBC 12.26 H (4.8-10.8) K/uL Neut # (Auto) 9.54 H (1.4-6.5) K/uL [place] # (Auto) 1.15 H (0.11-0.59) K/uL BUN 4 L (7-18) mg/dl BUN/Creatinine Ratio 4.8 L (10-20) Glucose 114 H (70-99) mg/dl Albumin 3.0 L (3.4-5.0) gm/dl Globulin 4.1 H (2.5-4.0) gm/dl Albumin/Globulin Ratio 0.7 L (0.9-2)
--- NOTE | 2019-03-13 15:12 | Hospitalist Progress Note ---
Date of Service March 13, 2019 Assessment & Plan (1) Right upper quadrant abdominal pain: Outpatient HIDA scan did show chronic cholecystitis Inpatient ultrasound did show thickening of the gallbladder wall Symptoms suggestive of gallbladder disease Status post laparoscopic cholecystectomy on 03/16 Appreciate surgery input and recommendation Remains reasonably stable following surgery We will continue current medications Clinically much better Has been tolerating regular diet Likely be discharged tomorrow Has been complaining of dizziness Does not have any other significant symptoms associated with dizziness Noted to have a scopolamine patch and a stool behind her ear It has been taken off Was given Phenergan 12.5 mg IV every 6 hourly for nausea and dizziness (2) Hematochezia: Denies any more hematochezia Will monitor H&H in the hospital (3) Anxiety and depression: Has been on multiple and OT psychotic medications We will continue dose while in the hospital Have any acute anxiety and/or depression (4) GERD (gastroesophageal reflux disease): Continue current medications (5) DVT prophylaxis: SCDs for now Likely be discharged tomorrow Increase ambulation Subjective 03/12 The patient was seen and examined in presence of the parents She is 23-year-old female with significant past medical history as mentioned in the H&P including anxiety, depression, dysmenorrhea, hematochezia, chronic cholecystitis. She was admitted with acute on chronic cholecystitis and is status post laparoscopic cholecystectomy on 03/12 Remains under the influence of medications following surgery but denies any significant symptoms 03/13 The patient was seen and examined in medical floor She is a status post laparoscopic cystectomy POD #1, Complains to have some dizziness Abdominal pain and discomfort have been improving Review of Systems 2 Review of Systems: All systems reviewed and are unremarkable except as noted below Gastrointestinal: + abdominal pain and + bloating; no nausea and no vomiting Neurologic: no confusion (Minimally confused secondary to drowsiness from medications) Physical Exam Physical Exam: Lying in bed with some discomfort Constitutional: well developed, well nourished and + obese; no acute distress and not ill appearing Eyes: PERRL, conjunctivae normal, anicteric sclerae ENMT: external ear and nose normal, oropharynx normal Neck: trachea midline, no thyromegaly Respiratory: normal respiratory effort Auscultation: lungs clear to auscultation bilaterally and + diminished lung sounds Cardiovascular: Rate/Rhythm: regular rate and regular rhythm Heart Sounds: no murmur Gastrointestinal (Abdomen): Inspection/Auscultation: + abdomen distended Percussion/Palpation: + abdomen tender and abdomen soft Musculoskeletal: No acute arthritis in any joints Neurologic: moves all extremities; no focal motor deficits Alert, awake and oriented x3 Results & Data Vital Signs (Past 12 Hours) Vital Signs Temp Pulse Resp BP Pulse Ox 03/13/19 14:59 36.8 C 82 16 111/73 97 03/13/19 09:51 83 111/77 03/13/19 08:45 91 H 126/87 03/13/19 07:31 36.7 C 73 16 110/73 97 03/13/19 07:11 36.7 C 73 16 110/73 97 Laboratory Results Short CBC 03/13/19 Range/Units 04:32 WBC 12.26 H (4.8-10.8) K/uL Hgb 13.6 (12.0-16.0) g/dL Hct 39.0 (37-47) % Plt Count 285 (130-400) K/uL BMP 03/13/19 04:32 Sodium 137 Potassium 3.9 Chloride 106 Carbon Dioxide 24 BUN 4 L Creatinine 0.76 Glucose 114 H Calcium 8.7 Liver Function 03/13/19 Range/Units 04:32 Total Bilirubin 0.3 (0.2-1) mg/dl AST 30 (15-37) U/L ALT 63 (12-78) U/L Alkaline Phosphatase 104 (45-117) U/L Albumin 3.0 L (3.4-5.0) gm/dl Medications Administered Current Inpatient Medications Buspirone HCl (Buspar) 20 mg PO HS [facility] Stop: 04/10/19 21:59 Last Admin: 03/12/19 20:16 Dose: 20 mg Documented by: Dicyclomine HCl (Bentyl) 10 mg PO TID PRN PRN Reason: Abdominal Pain Stop: 04/11/19 12:12 Famotidine (Pepcid) 20 mg PO BID [facility] Stop: 04/11/19 12:12 Last Admin: 03/13/19 08:03 Dose: 20 mg Documented by: Hydromorphone HCl (Dilaudid) 0.5 mg IV Q3H PRN PRN Reason: Pain Stop: 03/26/19 12:12 Last Admin: 03/12/19 18:39 Dose: 0.5 mg Documented by: Lorazepam (Ativan) 0.25 mg in 0.5 mls @ 0.5 mls/min IV Q4H PRN PRN Reason: Anxiety Stop: 04/11/19 06:41 Last Admin: 03/12/19 07:00 Dose: 0.5 mls/min Documented by: Lactated Ringer's (Lr) 1,000 mls @ 80 mls/hr IV .[id number] [facility] Stop: 04/11/19 12:12 Last Admin: 03/13/19 13:06 Dose: 80 mls/hr Documented by: Promethazine HCl 12.5 mg/ (Sodium Chloride) 50.5 mls @ 202 mls/hr IV Q6H PRN PRN Reason: Nausea And Vomiting Stop: 04/12/19 12:22 Last Infusion: 03/13/19 13:21 Dose: Infused Documented by: Lorazepam (Ativan) 0.5 mg PO DAILY PRN PRN Reason: Anxiety Stop: 04/11/19 12:12 Naproxen (Naprosyn) 500 mg PO BID PRN PRN Reason: Pain Stop: 04/11/19 12:12 Oral Contraceptive: Non-Formulary Patient's Own Med 1 ea PO PM [facility] Stop: 04/11/19 20:59 Last Admin: 03/12/19 21:00 Dose: 1 tab Documented by: Ondansetron HCl (Zofran) 4 mg IV Q6H PRN PRN Reason: Nausea Stop: 04/10/19 20:13 Last Admin: 03/12/19 18:14 Dose: 4 mg Documented by: Oxycodone/Acetaminophen (Percocet 5mg/325mg) 1 tab PO Q4H PRN PRN Reason: Pain Stop: 03/26/19 12:12 Last Admin: 03/13/19 00:29 Dose: 1 tab Documented by: Pantoprazole Sodium (Protonix) 40 mg PO QAM [facility] Stop: 04/11/19 08:59 Last Admin: 03/13/19 08:04 Dose: 40 mg Documented by: Tramadol HCl (Ultram) 50 mg PO BID PRN PRN Reason: Pain Stop: 04/11/19 12:12 Venlafaxine HCl (Effexor Extended Release) 75 mg PO HS [facility] Stop: 04/10/19 20:59 Last Admin: 03/12/19 20:17 Dose: 75 mg Documented by:
[2019-03-13] MEDS: VENLAFAXINE HCL XR 75 MG CAPXR PO SCH (20:29)
[2019-03-13] MEDS: CONTRACEPTIVE PO SCH (20:31)
[2019-03-14] MEDS: LACTATED RINGER'S 1,000 ML IV SCH (00:12)
[2019-03-14] MEDS: ONDANSETRON INJ 2 MG/ML 2 ML VIAL IV PRN (00:12)
[2019-03-14] MEDS: FAMOTIDINE 20 MG TAB PO SCH (08:41)
[2019-03-14] MEDS: PANTOprazole 40 MG TAB PO SCH (08:41)
--- NOTE | 2019-03-14 11:47 | Surgery Progress Note ---
Date of Service pt is doing better, less nausea, no vomiting, she tolerated diet, no fever. March 14, 2019 Assessment & Plan (1) Abdominal pain: pt is a 23 year-old female who was admitted hospital for 5 weeks history RUQ pain with nausea and vomiting, IMP: chronic cholecystitis Plan, I recommend to do laparoscopic cholecystectomy, possible open or cholangiogram, D/W benefits, risks and alternatives of the surgery, the risks - infection, bleeding, injury CBD, pt understood, she agrees with the surgery, I answered all questions, 03/13/2019 12:35pm, doing fine, pt can be discharged home today, or tomorrow, keep the dressing on for 4 days, she can take a shower on 03/17/2019, no heavy lifting > 20 LBS for 4 weeks, F/U me in 1 week, 03/14/2019 11:46AM doing fine, pt can be discharged home today, the post-op care instruction was given, Thanks, (2) Chronic cholecystitis: Physical Exam Constitutional: WD/WN, vitals as above well developed and well nourished ENMT: external ear and nose normal, oropharynx normal Neck: trachea midline, no thyromegaly Respiratory: normal respiratory effort, lungs clear to auscultation normal respiratory effort Cardiovascular: RRR, no murmur, no edema Rate/Rhythm: regular rate and regular rhythm Heart Sounds: normal S1 and normal S2 Gastrointestinal (Abdomen): Percussion/Palpation: abdomen soft all incisions intact, no redness, no tenderness, Musculoskeletal: no cyanosis or clubbing, extremities motor strength 5/5 Skin: no rashes, warm and dry Neurologic: patellar DTR's 2+ bilat, sensation intact Psychiatric: Orientation: alert and oriented x 3 Results & Data Vital Signs (Past 12 Hours) Vital Signs Temp Pulse Resp BP Pulse Ox 03/14/19 07:11 36.9 C 80 18 114/76 96
--- NOTE | 2019-03-14 13:04 | Hospitalist Progress Note ---
Date of Service March 14, 2019 Assessment & Plan (1) Right upper quadrant abdominal pain: Outpatient HIDA scan did show chronic cholecystitis Inpatient ultrasound did show thickening of the gallbladder wall Symptoms suggestive of gallbladder disease Status post laparoscopic cholecystectomy on 03/16 Appreciate surgery input and recommendation Remains reasonably stable following surgery Clinically much better today Has been tolerating regular diet She is ready to be discharged today Has been complaining of dizziness Does not have any other significant symptoms associated with dizziness Noted to have a scopolamine patch and a stool behind her ear It has been taken off Was given Phenergan 12.5 mg IV every 6 hourly for nausea and dizziness no more dizziness (2) Hematochezia: Denies any more hematochezia Will monitor H&H in the hospital (3) Anxiety and depression: Has been on multiple and OT psychotic medications We will continue dose while in the hospital Have any acute anxiety and/or depression (4) GERD (gastroesophageal reflux disease): Continue current medications (5) DVT prophylaxis: SCDs for now Likely be discharged tomorrow Increase ambulation Subjective 03/12 The patient was seen and examined in presence of the parents She is 23-year-old female with significant past medical history as mentioned in the H&P including anxiety, depression, dysmenorrhea, hematochezia, chronic cholecystitis. She was admitted with acute on chronic cholecystitis and is status post laparoscopic cholecystectomy on 03/12 Remains under the influence of medications following surgery but denies any significant symptoms 03/13 The patient was seen and examined in medical floor She is a status post laparoscopic cystectomy POD #1, Complains to have some dizziness Abdominal pain and discomfort have been improving 03/14 The patient was seen and examined in medical floor She has been doing much better and the dizziness is over She has been tolerating regular diet and is going to go home today Review of Systems Review of Systems: All systems reviewed and are unremarkable except as noted below Gastrointestinal: + abdominal pain and + bloating; no nausea and no vomiting Physical Exam Physical Exam: Lying in bed comfortably Constitutional: well developed, well nourished and + obese; no acute distress and not ill appearing Eyes: PERRL, conjunctivae normal, anicteric sclerae ENMT: external ear and nose normal, oropharynx normal Neck: trachea midline, no thyromegaly Respiratory: normal respiratory effort Auscultation: lungs clear to auscultation bilaterally and + diminished lung sounds Cardiovascular: Rate/Rhythm: regular rate and regular rhythm Heart Sounds: no murmur Gastrointestinal (Abdomen): Inspection/Auscultation: + abdomen distended Percussion/Palpation: + abdomen tender and abdomen soft Neurologic: moves all extremities; no focal motor deficits Results & Data Vital Signs (Past 12 Hours) Vital Signs Temp Pulse Resp BP Pulse Ox 03/14/19 12:09 36.9 C 80 18 114/76 96 03/14/19 07:11 36.9 C 80 18 114/76 96 Medications Administered Current Inpatient Medications Buspirone HCl (Buspar) 20 mg PO HS [facility] Stop: 04/10/19 21:59 Last Admin: 03/13/19 20:29 Dose: 20 mg Documented by: Dicyclomine HCl (Bentyl) 10 mg PO TID PRN PRN Reason: Abdominal Pain Stop: 04/11/19 12:12 Famotidine (Pepcid) 20 mg PO BID [facility] Stop: 04/11/19 12:12 Last Admin: 03/14/19 08:41 Dose: 20 mg Documented by: Hydromorphone HCl (Dilaudid) 0.5 mg IV Q3H PRN PRN Reason: Pain Stop: 03/26/19 12:12 Last Admin: 03/12/19 18:39 Dose: 0.5 mg Documented by: Lorazepam (Ativan) 0.25 mg in 0.5 mls @ 0.5 mls/min IV Q4H PRN PRN Reason: Anxiety Stop: 04/11/19 06:41 Last Admin: 03/12/19 07:00 Dose: 0.5 mls/min Documented by: Lactated Ringer's (Lr) 1,000 mls @ 80 mls/hr IV .[id number] [facility] Stop: 04/11/19 12:12 Last Admin: 03/14/19 00:12 Dose: 80 mls/hr Documented by: Promethazine HCl 12.5 mg/ (Sodium Chloride) 50.5 mls @ 202 mls/hr IV Q6H PRN PRN Reason: Nausea And Vomiting Stop: 04/12/19 12:22 Last Infusion: 03/13/19 13:21 Dose: Infused Documented by: Lorazepam (Ativan) 0.5 mg PO DAILY PRN PRN Reason: Anxiety Stop: 04/11/19 12:12 Naproxen (Naprosyn) 500 mg PO BID PRN PRN Reason: Pain Stop: 04/11/19 12:12 Oral Contraceptive: Non-Formulary Patient's Own Med 1 ea PO PM [facility] Stop: 04/11/19 20:59 Last Admin: 03/13/19 20:31 Dose: 1 tab Documented by: Ondansetron HCl (Zofran) 4 mg IV Q6H PRN PRN Reason: Nausea Stop: 04/10/19 20:13 Last Admin: 03/14/19 00:12 Dose: 4 mg Documented by: Oxycodone/Acetaminophen (Percocet 5mg/325mg) 1 tab PO Q4H PRN PRN Reason: Pain Stop: 03/26/19 12:12 Last Admin: 03/13/19 15:37 Dose: 1 tab Documented by: Pantoprazole Sodium (Protonix) 40 mg PO QAM [facility] Stop: 04/11/19 08:59 Last Admin: 03/14/19 08:41 Dose: 40 mg Documented by: Tramadol HCl (Ultram) 50 mg PO BID PRN PRN Reason: Pain Stop: 04/11/19 12:12 Venlafaxine HCl (Effexor Extended Release) 75 mg PO HS [facility] Stop: 04/10/19 20:59 Last Admin: 03/13/19 20:29 Dose: 75 mg Documented by:
--- NOTE | 2019-03-15 09:09 | Discharge Summary ---
Date of Service March 15, 2019 Admission HPI Per Admitting Provider Attending: Dr. Mariee There is a 23-year-old female with a history of anxiety, depression, dysmenorrhea, hematochezia, chronic cholecystitis. The patient has been evaluated by outpatient surgery as well as GI for ongoing abdominal pain for the last several weeks. She was most recently seen by Dr. Mcgraw who scheduled her for a HIDA scan which showed chronic cholecystitis. The patient was scheduled for an elective cholecystectomy 03/16/2019. The patient has had persistent nausea and abdominal pain and this morning reports having some diarrhea with some blood in it. Patient denies any dark blood but states that it was bright red. The patient has no prior history of GI bleed. As an outpatient she is on Bentyl, famotidine, and omeprazole. She denies any rectal pain with bowel movement. She denies any bright red blood per rectum or melena. She further denies any hematemesis. Labs reveal slightly elevated alkaline phosphatase at 141 and total protein 9.1. Otherwise LFTs are within normal limits. Patient has no leukocytosis and is afebrile She has no significant abdominal pain on exam and has no rebound tenderness or guarding. Aside from abdominal pain and some intermittent nausea the patient has no other acute complaints. Admission Exam Per Admitting Provider Physical Exam: GENERAL : No acute distress EYES: No icterus, gaze conjugate NOSE: No evidence of epistaxis MOUTH: No lesions or candidiasis NECK: Supple LUNGS: CTA B/L, no wheezes, rales or rhonchi HEART: Regular, rate controlled ABDOMEN: Minimal tenderness to exam in right upper quadrant with deep palpation. Soft, ND, BS Present in all 4 quadrants. No guarding or rebound tenderness on exam EXTREMITIES: No LE edema, pedal pulses intact and equal bilaterally. No asymmetrical edema. No Homans sign. NEURO: A&OX3. No appreciation of any focal deficits. Principal Diagnosis Status post laparoscopic cholecystectomy for acute on chronic cholecystitis, hematochezia-resolved, anxiety and depression Discharge Exam Constitutional well developed, well nourished and + obese; no acute distress and not ill appearing Eyes PERRL, conjunctivae normal, anicteric sclerae ENMT external ear and nose normal, oropharynx normal Neck trachea midline, no thyromegaly Respiratory normal respiratory effort Auscultation: lungs clear to auscultation bilaterally and + diminished lung sounds Cardiovascular Rate/Rhythm: regular rate and regular rhythm Heart Sounds: no murmur Gastrointestinal (Abdomen) Inspection/Auscultation: + abdomen distended Percussion/Palpation: + abdomen tender and abdomen soft Neurologic moves all extremities; no focal motor deficits Discharge Data Allergies Allergy/AdvReac Type Severity Reaction Status Date / Time No Known Drug Allergies AdvReac . Verified 03/11/19 17:45 jalapeno AdvReac Severe nausea,vomi Uncoded 03/11/19 17:45 ting,diarrh ea Consultations 03/11/19 18:33 ED Decision to Admit Stat 03/11/19 20:14 Consult General Surgery Routine Procedures Performed Operation Date: 03/12/19 09:00 Actual Procedures p Laparoscopic Cholecystectomy(Not Applicable) - Kerline Munoz MD Ordered Studies 03/11/19 16:12 US gallbladder Stat Hospital Course (1) Right upper quadrant abdominal pain: Outpatient HIDA scan did show chronic cholecystitis Inpatient ultrasound did show thickening of the gallbladder wall Symptoms suggestive of gallbladder disease Status post laparoscopic cholecystectomy on 03/16 Appreciate surgery input and recommendation Remains reasonably stable following surgery Clinically much better today Has been tolerating regular diet She is ready to be discharged today Has been complaining of dizziness Does not have any other significant symptoms associated with dizziness Noted to have a scopolamine patch and a stool behind her ear It has been taken off Was given Phenergan 12.5 mg IV every 6 hourly for nausea and dizziness no more dizziness (2) Hematochezia: Denies any more hematochezia Will monitor H&H in the hospital (3) Anxiety and depression: Has been on multiple and OT psychotic medications We will continue dose while in the hospital Have any acute anxiety and/or depression (4) GERD (gastroesophageal reflux disease): Continue current medications (5) DVT prophylaxis: SCDs for now Likely be discharged tomorrow Increase ambulation Total Time Total Time Spent Total Time Spent (In Minutes): 35 minutes Total Time Includes: Examination of the Patient, Discharge Planning, Medication Reconciliation and Communication With Other Providers Discharge Plan Discharge Items Patient Disposition: Home - Self-Care Reason For Visit: ABDOMINAL PAIN Discharge Diagnosis: Status post laparoscopic cholecystectomy for acute on chronic cholecystitis, hematochezia-resolved, anxiety and depression Condition on Discharge: Good Activity: Resume your previous activity Non-emergency contact: Primary Care Provider Call non-emergency contact if: you have any medication questions and your symptoms worsen Follow-up/Referrals: Ananth Peralta MD [Primary Care Provider] - 03/20/19 8:45 am (As per surgery: keep the dressing on for 3 days, she can take a shower on 03/17/2019, no heavy lifting > 20 LBS for 4 weeks, F/U me in 1 week, ) Diet: Regular Addtl Attending Provider Instructions: Please follow instructions as per surgeon Pending Studies at Discharge: No Stand-Alone Forms: My [facility] Medications and DC Order Prescriptions: Continued naproxen 500 mg Tablet 500 mg PO BID PRN (Reason: Pain) RF: 0 famotidine 20 mg tablet 20 mg PO BID RF: 0 buspirone 10 mg tablet 20 mg PO HS RF: 0 omeprazole 20 mg capsule,delayed release(DR/EC) 20 mg PO QAM RF: 0 tramadol 50 mg Tablet 50 mg PO BID PRN (Reason: Pain) RF: 0 dicyclomine 10 mg capsule 10 mg PO TID PRN (Reason: Abdominal Pain) RF: 0 venlafaxine [Effexor XR] 75 mg Capsule,Extended Release 24hr 75 mg PO HS RF: 0 lorazepam 0.5 mg Tablet 0.5 mg PO DAILY PRN (Reason: Anxiety) RF: 0 L norgest/e.estradiol-e.estrad [Seasonique] 0.15 mg-30 mcg (84)/10 mcg (7) Tablets,Dose Pack,3 Month 1 tab PO HS RF: 0 Discharge Orders: Discharge Order (Routine); Ordered 03/14/19 Ordered By: Amelia Heath/Other Patient Handouts: DVT Prevent Admission Data Admit Date/Time: 03/13/19 13:47 Attending Provider: Amelia Bryant Admit Provider: Aric Mariee Primary Care Provider: Ananth Peralta Other Providers: Kerline Munoz ; Aric Mariee Other Interventions: Discharge Summary Assessment (RN) Last Done: 03/14/19 12:09 DC Date/Time DO NOT enter until pt leaves facility: 03/14/19 14:27
== END 2019-03-14 14:27 | disposition home or self-care (01) | DRG 418 ==
LOC: 3E 15:16 → ED 15:16 → SUATTDRO 19:36 → 3E 19:59